=== PATIENT | female | born 1940 | race Caucasian/White ===

== ENCOUNTER → 2016-11-25 | Outpatient (CLI) | payer OTHER | END | disposition home or self-care (01) | LOC: C.PATHSPEC 10:11 | PROVIDERS: ATTEND Family Medicine | DX: L43.9 Lichen planus, unspecified (principal) ==

== ENCOUNTER → 2017-02-22 | Outpatient (CLI) | payer OTHER ==
[2017-02-22 13:15] LABS: BASO % 1.4 %; BASO ABS # 0.07 K/uL (0-0.2); COMPLETE YES; EOS % 4.6 %; HEMATOCRIT 39.4 % (37-47); IG% 0.2 %; LYMPH % 37.8 %; LYMPH ABS # 1.87 K/uL (1.2-3.4); MEAN CELL VOLUME 90.6 fL (80-100); MEAN CORPUSCULAR HEMOGLOBIN 30.3 pg (25-34); MEAN CORPUSCULAR HGB CONC 33.5 g/dl (32-36); MEAN PLATELET VOLUME 8.7 fL (7.4-10.4); MONO % 9.3 %; NEUT % 46.7 %; PLATELET COUNT 260 K/uL (130-400); RED BLOOD COUNT 4.35 M/uL (4.2-5.4); WHITE BLOOD COUNT 4.95 K/uL (4.8-10.8)
[2017-02-22 13:34] LABS: ALT/SGPT 27 U/L (12-78); BLOOD UREA NITROGEN 12 mg/dl (7-18); BUN/CREATININE RATIO 17.3 (10-20); CALCIUM 9.6 mg/dl (8.5-10.1); CARBON DIOXIDE 29 mmol/L (21-32); CHLORIDE 105 mmol/L (98-107); CHOLESTEROL 191 mg/dl (0-200); CREATININE 0.67 mg/dl (0.60-1.20); GLUCOSE 86 mg/dl (70-99); POTASSIUM 4.2 mmol/L (3.5-5.1); SODIUM 140 mmol/L (136-145); TRIGLYCERIDES 97 mg/dl (0-150); VERY LOW DENSITY LIPOPROT CALC 19 mg/dl
[2017-02-22 13:50] LABS: ALB/GLOB RATIO 1.3 (0.9-2); ALKALINE PHOSPHATASE 71 U/L (45-117); AST/SGOT 23 U/L (15-37); CHOLESTEROL/HDL RATIO 3.1; HDL CHOLESTEROL 62 mg/dl; LDL CHOLESTEROL CALCULATED 110 mg/dl
--- NOTE | 2017-03-01 14:22 | CODING QUERY MEDICAL NECESSITY ---
CQSUPPORTING DIAGNOSIS NEEDED A supporting diagnosis is required for the test/procedure performed on this patient in order for us to be reimbursed by the patient's insurance. Please provide a supporting diagnosis for the following test/procedure listed below next to the test name along with your signature. *If there is no additional diagnosis for this patient that would support the following test/procedure please document that below next to the test/procedure. Test(s)/Procedure(s) that require a supporting diagnosis: DOS 02/22/17 BLOOD COUNT ORDERED BY BRI SIMMONS Provider Signature: Date: Thank you Ladonna [facility] Once completed, please kindly fax back to [phone] For questions please call [phone]
== END | disposition home or self-care (01) ==
LOC: C.LABMFLN 12:15
PROVIDERS: ATTEND Physician Assistant
DX: Z00.00 Encounter for general adult medical examination without abnormal findings (principal); Z13.220 Encounter for screening for lipoid disorders; Z13.1 Encounter for screening for diabetes mellitus; Z13.29 Encounter for screening for other suspected endocrine disorder

== ENCOUNTER → 2018-06-15 | Outpatient (CLI) | payer OTHER ==
[2018-06-15 18:52] LABS: ALKALINE PHOSPHATASE 72 U/L (45-117); ALT/SGPT 27 U/L (12-78); AST/SGOT 20 U/L (15-37); BLOOD UREA NITROGEN 14 mg/dl (7-18); CARBON DIOXIDE 28 mmol/L (21-32); CREATININE 0.71 mg/dl (0.60-1.20); GLUCOSE 86 mg/dl (70-99); POTASSIUM 4.4 mmol/L (3.5-5.1); SODIUM 139 mmol/L (136-145); TOTAL PROTEIN 7.2 gm/dl (6.4-8.2)
== END | disposition home or self-care (01) ==
LOC: C.LABMFLN 14:30
PROVIDERS: ATTEND Physician Assistant
DX: E03.9 Hypothyroidism, unspecified (principal); Z79.1 Long term (current) use of non-steroidal anti-inflammatories (NSAID)